=== PATIENT | male | born 1985 | race Caucasian/White ===

== ENCOUNTER 2020-06-02 22:52 | Emergency (ER) | payer OTHER ==
[2020-06-02] MEDS ORDERED: AMOX TR/POT CLAV 875MG/125MG TABLETS (FP) PO ONE (23:09)
[2020-06-02 23:11] VITALS: BP 130/89; PULSE 74; TEMP 97.9; BMI 25.0
[2020-06-02] MEDS ORDERED: DIPHTH,PERTUSS(ACELL),TET 0.5 ML DISP.SYRIN IM ONE ×2 (23:18→23:25)
[2020-06-02] MEDS ORDERED: AMOX TR/POT CLAV 875MG/125MG TABLETS (FP) ONE (23:24)
== END 2020-06-03 00:09 | disposition home or self-care (01) ==
LOC: FER 22:52
PROC: 3E0234Z Introduction of Serum, Toxoid and Vaccine into Muscle, Percutaneous Approach (ICD-10-PCS; principal; 2020-06-02)
DX: S01.511A Laceration without foreign body of lip, initial encounter (principal)
CPT/HCPCS: 90715; 99284-25

== ENCOUNTER 2020-10-15 04:05 | Inpatient (IN) | payer OTHER ==
[2020-10-15] MEDS ORDERED: chlordiazePOXIDE HCL 25 MG CAPSULE PO ONE (04:20)
[2020-10-15] MEDS ORDERED: chlordiazePOXIDE HCL 25 MG CAPSULE ONE (04:21)
[2020-10-15] MEDS ORDERED: LORazepam 2 MG/ML SDV VIAL IVPUSH STA ×2 (04:34→04:43)
[2020-10-15] MEDS ORDERED: LORazepam 2 MG/ML SDV VIAL ONE (04:35)
[2020-10-15] MEDS ORDERED: diazePAM CARPU-JECT 10 MG/2 ML DISP.SYRIN IVPUSH ONE ×4 (04:48→06:30)
[2020-10-15] MEDS ORDERED: diazePAM CARPU-JECT 10 MG/2 ML DISP.SYRIN ONE ×3 (05:19→07:34)
[2020-10-15] MEDS ORDERED: SODIUM CHLORIDE 1,000 ML IV STA ×4 (05:52→14:35)
[2020-10-15 07:26] LABS: BASO % 0.5 % (0-2.0); EOS % 0.3 % (0-4.5); HEMATOCRIT 42.2 % (35.4-49); HEMOGLOBIN 14.7 GM/dL (11.7-16.9); LYMPH % 17.3 % (8-40); MCH 30.2 pg (25.7-33.7); MCHC 34.9 g/dl (32.0-35.9); MEAN CELL VOLUME 86.5 fl (80-96); MEAN PLT VOLUME 7.7 fl (7.5-11.1); NEUT % 72.9 % (42.8-82.8); PLATELET COUNT 367 10^3/uL (134-434); RBC 4.88 M/mm3 (4.00-5.60); RDW 13.6 % (11.9-15.9); WHITE BLOOD COUNT 16.1 K/mm3 (4.0-10.0)
[2020-10-15 08:27] LABS: ALBUMIN 4.7 g/dl (3.4-5.0); BILIRUBIN,TOTAL 0.4 mg/dL (0.2-1); BLOOD UREA NITROGEN 11.6 mg/dL (7-18); CALCIUM 10.2 mg/dL (8.5-10.1); CREATININE 1.3 mg/dL (0.55-1.3); TOT PROT 8.8 g/dl (6.4-8.2)
[2020-10-15 09:10] LABS: HEMATOCRIT 38.5 % (35.4-49); HEMOGLOBIN 13.8 GM/dl (11.7-16.9); MCH 31.2 pg (25.7-33.7); MCHC 35.8 g/dl (32.0-35.9); MEAN CELL VOLUME 87.3 fl (80-96); MEAN PLT VOLUME 7.7 fl (7.5-11.1); PLATELET COUNT 323 10^3/uL (134-434); RBC 4.41 M/mm3 (4.00-5.60); RDW 12.8 % (11.9-15.9); WHITE BLOOD COUNT 23.3 K/mm3 (4.0-10.8)
[2020-10-15 09:17] LABS: ALBUMIN 4.2 g/dl (3.4-5.0); BILIRUBIN,TOTAL 0.6 mg/dl (0.2-1); CALCIUM 8.9 mg/dl (8.5-10); CREATININE 1.3 mg/dl (0.55-1.3); TOT PROT 7.4 g/dl (6.4-8.2)
[2020-10-15 11:02] LABS: COCAINE, UR NEGATIVE (NEGATIVE); METHADONE, UR POSITIVE (NEGATIVE); OPIATES, URI NEGATIVE (NEGATIVE); PHENCYCLIDINE,URINE NEGATIVE (NEGATIVE); URINE AMPHETAMINES POSITIVE (NEGATIVE); URINE BARBITURATES NEGATIVE (NEGATIVE); URINE BENZODIAZEPINES POSITIVE (NEGATIVE)
[2020-10-15 13:21] LABS: EPITHELIAL CELLS FEW /hpf; URIC ACID CRYSTALS 3+ /hpf (NONE SEEN)
[2020-10-15] MEDS ORDERED: LORazepam 1 MG TABLET PO PRN (14:56)
[2020-10-15] MEDS ORDERED: SODIUM CHLORIDE 1,000 ML IV SCH (15:30)
[2020-10-15 15:58] LABS: MAGNESIUM 2.7 mg/dL (1.8-2.4); PHOSPHOROUS 2.7 mg/dl (2.5-4.9)
[2020-10-15 16:55] LABS: URIC ACID 15.5 mg/dl (2.6-7.2)
[2020-10-15 17:34] VITALS: BMI 26.9
[2020-10-15] MEDS: LORazepam 1 MG TABLET PO SCH ×2 (17:41→23:27)
[2020-10-16] MEDS: LORazepam 1 MG TABLET PO SCH ×4 (06:04→23:23)
[2020-10-16 08:06] LABS: BASO % 1.5 % (0-2.0); EOS % 0.4 % (0-4.5); HEMATOCRIT 35.1 % (35.4-49); HEMOGLOBIN 12.4 GM/dl (11.7-16.9); LYMPH % 16.4 % (8-40); MCH 31.1 pg (25.7-33.7); MCHC 35.3 g/dl (32.0-35.9); MEAN CELL VOLUME 88.3 fl (80-96); MONO % 7.3 % (3.8-10.2); NEUT % 74.4 % (42.8-82.8); PLATELET COUNT 255 10^3/uL (134-434); RBC 3.97 M/mm3 (4.00-5.60); RDW 12.9 % (11.9-15.9); WHITE BLOOD COUNT 13.4 K/mm3 (4.0-10.8)
[2020-10-16 08:18] LABS: ALBUMIN 3.4 g/dl (3.4-5.0); BILIRUBIN,TOTAL 0.6 mg/dl (0.2-1); CALCIUM 8.3 mg/dl (8.5-10); MAGNESIUM 2.1 mg/dL (1.8-2.4); PHOSPHOROUS 3.6 mg/dl (2.5-4.9); TOT PROT 6.2 g/dl (6.4-8.2); URIC ACID 5.1 mg/dl (2.6-7.2)
[2020-10-16 08:25] LABS: ACTIVATED PTT 25.8 SECONDS (25.2-36.5)
[2020-10-16 08:30] LABS: INR 1.18 (0.82-1.09); PROTHROMBIN TIME (PATIENT) 13.1 SEC (10.2-13.0)
[2020-10-16 08:38] LABS: BILIRUBIN,DIRECT 0.1 mg/dL (0.0-0.2)
[2020-10-16] MEDS: ENOXAPARIN NA (PORCINE) 40 MG/0.4 ML DISP.SYRIN SQ SCH (10:05)
[2020-10-16] MEDS: SODIUM CHLORIDE 1,000 ML IV SCH (12:45)
[2020-10-17] MEDS: SODIUM CHLORIDE 1,000 ML IV SCH ×3 (00:12→12:29)
[2020-10-17] MEDS: LORazepam 1 MG TABLET PO SCH ×4 (05:23→22:17)
[2020-10-17 09:46] LABS: ALBUMIN 3.2 g/dl (3.4-5.0); BILIRUBIN,TOTAL 0.6 mg/dl (0.2-1); CALCIUM 8.3 mg/dl (8.5-10); CREATININE 0.8 mg/dl (0.55-1.3); MAGNESIUM 1.7 mg/dL (1.8-2.4); PHOSPHOROUS 3.6 mg/dl (2.5-4.9); TOT PROT 5.9 g/dl (6.4-8.2)
[2020-10-17] MEDS: ENOXAPARIN NA (PORCINE) 40 MG/0.4 ML DISP.SYRIN SQ SCH (10:23)
[2020-10-17] MEDS: THIAMINE HCL 100 MG TABLET (FP) PO SCH (10:23)
[2020-10-17] MEDS: FOLIC ACID 1 MG TABLET (FP) PO SCH (10:23)
[2020-10-17] MEDS ORDERED: MAGNESIUM OXIDE 400 MG TABLET (FP) PO ONE (10:47)
[2020-10-17] MEDS ORDERED: POTASSIUM CHLORIDE TABS 20 MEQ TABLET.ER (FP) PO ONE (14:30)
[2020-10-17] MEDS ORDERED: MAGNESIUM SULF 50% (8.12 MEQ/2 ML-1 GM VIAL) IVPB ONE (14:30)
[2020-10-18] MEDS ORDERED: LORazepam 0.5 MG TABLET PO PRN
[2020-10-18] MEDS: LORazepam 0.5 MG TABLET PO SCH ×4 (05:30→22:29)
[2020-10-18 09:08] LABS: BASO % 2.2 % (0-2.0); EOS % 0.3 % (0-4.5); HEMATOCRIT 33.4 % (35.4-49); HEMOGLOBIN 11.2 GM/dl (11.7-16.9); LYMPH % 19.8 % (8-40); MCH 29.9 pg (25.7-33.7); MCHC 33.5 g/dl (32.0-35.9); MEAN CELL VOLUME 89.1 fl (80-96); MEAN PLT VOLUME 8.6 fl (7.5-11.1); MONO % 11.5 % (3.8-10.2); NEUT % 66.2 % (42.8-82.8); PLATELET COUNT 252 10^3/uL (134-434); RBC 3.74 M/mm3 (4.00-5.60); RDW 12.7 % (11.9-15.9); WHITE BLOOD COUNT 9.2 K/mm3 (4.0-10.8)
[2020-10-18] MEDS: ENOXAPARIN NA (PORCINE) 40 MG/0.4 ML DISP.SYRIN SQ SCH (09:31)
[2020-10-18] MEDS: FOLIC ACID 1 MG TABLET (FP) PO SCH (09:31)
[2020-10-18] MEDS: THIAMINE HCL 100 MG TABLET (FP) PO SCH (09:31)
[2020-10-18 10:07] LABS: ALBUMIN 3.5 g/dl (3.4-5.0); BILIRUBIN,TOTAL 0.6 mg/dl (0.2-1); CALCIUM 8.6 mg/dl (8.5-10); CREATININE 0.8 mg/dl (0.55-1.3); MAGNESIUM 1.8 mg/dL (1.8-2.4); TOT PROT 6.3 g/dl (6.4-8.2)
[2020-10-18] MEDS: SODIUM CHLORIDE 1,000 ML IV SCH (12:56)
[2020-10-19] MEDS ORDERED: LORazepam 0.5 MG TABLET PO ONE (05:00)
[2020-10-19 08:15] LABS: ALBUMIN 3.5 g/dl (3.4-5.0); BILIRUBIN,TOTAL 0.5 mg/dl (0.2-1); CALCIUM 8.7 mg/dl (8.5-10); CREATININE 0.9 mg/dl (0.55-1.3); MAGNESIUM 1.6 mg/dL (1.8-2.4); TOT PROT 6.2 g/dl (6.4-8.2)
[2020-10-19 08:47] VITALS: BP 127/70; PULSE 91; TEMP 98.3
[2020-10-19 08:56] LABS: BILIRUBIN,DIRECT 0.1 mg/dL (0.0-0.2)
[2020-10-19] MEDS: THIAMINE HCL 100 MG TABLET (FP) PO SCH (09:17)
[2020-10-19] MEDS: ENOXAPARIN NA (PORCINE) 40 MG/0.4 ML DISP.SYRIN SQ SCH (09:17)
[2020-10-19] MEDS: FOLIC ACID 1 MG TABLET (FP) PO SCH (09:17)
[2020-10-19] MEDS ORDERED: MAGNESIUM SULF 50% (8.12 MEQ/2 ML-1 GM VIAL) IVPB ONE (09:40)
[2020-10-19] MEDS ORDERED: MAGNESIUM OXIDE 400 MG TABLET (FP) PO ONE (09:51)
== END 2020-10-19 13:50 | disposition home or self-care (01) | DRG 351 ==
LOC: FER 04:05 → FM/S 13:46
PROVIDERS: ADMIT Internal Medicine; ATTEND Nurse Practitioner Acute Care
DX: M62.82 Rhabdomyolysis (principal); F41.9 Anxiety disorder, unspecified; F90.9 Attention-deficit hyperactivity disorder, unspecified type; F13.230 Sedative, hypnotic or anxiolytic dependence with withdrawal, uncomplicated; R41.0 Disorientation, unspecified; R31.29 Other microscopic hematuria; E79.0 Hyperuricemia without signs of inflammatory arthritis and tophaceous disease; F19.10 Other psychoactive substance abuse, uncomplicated; R74.01 Elevation of levels of liver transaminase levels; F10.10 Alcohol abuse, uncomplicated
CPT/HCPCS: 36415; 70450-TC; 71045-TC-FY; 76775-TC; 80048; 80053; 80076; 80307; 81003; 81015; 82550; 82553; 82570; 83690; 83735; 84100; 84156; 84550; 85025; 85610; 85730; 87040; 87086; 99285-25; C9803; U0003; U0005